=== PATIENT | male | born 1945 | race Caucasian/White ===

== ENCOUNTER 2020-05-25 09:02 | Day surgery (SDC) | payer MEDICARE, OTHER ==
[2020-05-23 13:00] LABS: BASOPHILS % (AUTO) 0.2 % (0-1); EOSINOPHILS # (AUTO) 0.1 X10'3 (0-0.9); EOSINOPHILS % (AUTO) 1.2 % (0-6); HEMATOCRIT 44.6 % (42.0-52.0); HEMOGLOBIN 14.7 g/dl (14.0-17.9); LYMPHOCYTES # (AUTO) 2.7 X10'3 (1.1-4.8); LYMPHOCYTES % (AUTO) 43.6 % (21-51); MEAN CORPUSCULAR HEMOGLOBIN 31.5 PG (27.0-31.0); MEAN CORPUSCULAR HGB CONC 32.9 g/dL (33.0-36.5); MEAN CORPUSCULAR VOLUME 95.6 FL (78-98); MEAN PLATELET VOLUME 7.3 FL (7.4-10.4); MONOCYTES # (AUTO) 0.5 X10'3 (0-0.9); MONOCYTES % (AUTO) 8.7 % (2-12); NEUTROPHILS # (AUTO) 2.8 X10'3 (1.8-7.7); NEUTROPHILS % (AUTO) 46.3 % (42-75); PLATELET COUNT 172 X10'3 (140-440); RED BLOOD COUNT 4.66 X10'6 (4.70-6.10); RED CELL DISTRIBUTION WIDTH 13.7 % (11.5-14.5); WHITE BLOOD COUNT 6.1 X10'3 (4.5-11.0)
[2020-05-23 13:14] LABS: PARTIAL THROMBOPLASTIN TIME 26 SECONDS (22-32)
[2020-05-23 13:18] LABS: ALBUMIN 3.1 G/DL (3.4-5.0); ANION GAP 7 (8-16); BLOOD UREA NITROGEN 13 MG/DL (7-18); BUN/CREATININE RATIO 14.8 (5.4-32.0); CALCIUM 9.2 MG/DL (8.5-10.1); CHLORIDE 107 MMOL/L (99-107); CREATININE 0.88 MG/DL (0.60-1.10); GLUCOSE 80 MG/DL (70-104); POTASSIUM 4.6 MMOL/L (3.5-5.1); SODIUM 143 MMOL/L (135-145); TOTAL CARBON DIOXIDE 29.4 MMOL/L (24-32); eGFR 84 ML/MIN
[~2020-05-25] VITALS: Ht 172.7 cm; Wt 103.7 kg
[2020-05-25] VITALS (12 sets, daily range): BP systolic 128–158; BP diastolic 68–88
[2020-05-25] MEDS ORDERED: LIDOcaine/PRILOcaine 5gm cream TP ONE (09:35)
[2020-05-25] MEDS ORDERED: LORazepam 0.5 MG tablet PO PRN (09:35)
[2020-05-25] MEDS ORDERED: diphenhydrAMINE 25mg capsule PO PRN (09:35)
[2020-05-25] MEDS ORDERED: normal saline 1,000 ML IV SCH (09:35)
[2020-05-25] MEDS ORDERED: DIP0.05CR TOP (09:51)
[2020-05-25] MEDS ORDERED: POLY17PO10 PO (09:51)
[2020-05-25] MEDS ORDERED: LACT1CAP65 PO (09:54)
[2020-05-25] MEDS ORDERED: CETI-194 PO (09:54)
[2020-05-25] MEDS ORDERED: VITA100C24 PEG (09:54)
[2020-05-25] MEDS ORDERED: DETOX PO (09:54)
[2020-05-25] MEDS ORDERED: PANT40TA54 PO (09:54)
[2020-05-25] MEDS ORDERED: LUTE1CAP4 PO (09:58)
[2020-05-25] MEDS ORDERED: UBID100C16 PO (09:58)
[2020-05-25] MEDS ORDERED: VITAMIN D3 PO (09:58)
[2020-05-25] MEDS ORDERED: VITAMIN B12 PO (09:58)
[2020-05-25] MEDS ORDERED: fentaNYL/PF 50MCG/1 ML 2ML syringe ONE (11:44)
[2020-05-25] MEDS ORDERED: ceFAZolin 1000mg inj ONE (11:44)
[2020-05-25] MEDS ORDERED: midazolam 1 mg/ML 2ml injection ONE ×2 (11:44→13:49)
[2020-05-25] MEDS ORDERED: LIDOcaine 1% W/epiNEPHrine 1:100,000 20ml vial ONE (11:45)
[2020-05-25] MEDS ORDERED: ceFAZolin 2gm in dextrose, iso 50 ML IV ONE (12:31)
[2020-05-25] MEDS ORDERED: verapamil 2.5 mg/ml inj IV ONE (13:39)
[2020-05-25] MEDS ORDERED: nitroGLYCERIN-Tridil 50MG/D5W 250 ML IV ONE (13:39)
[2020-05-25] MEDS ORDERED: iohexol 350MG/ML 100ml bottle IV ONE (13:39)
[2020-05-25] MEDS ORDERED: iohexol 350 MG/ML 50ML vial IV ONE ×2 (13:39→14:21)
[2020-05-25] MEDS ORDERED: LIDOcaine 1% (10mg/ml)w/preservative injection 20ml MDV ONE (13:39)
[2020-05-25] MEDS ORDERED: heparin 1,000unit/ml 10ml vial 10 ML ONE (13:39)
[2020-05-25] MEDS ORDERED: HYDROcodone/acetaminophen 5mg/325mg tablet PO PRN (15:00)
[2020-05-25] MEDS ORDERED: HYDROcodone/acetaminophen 10/325mg tab PO PRN (15:00)
[2020-05-25] MEDS ORDERED: normal saline 1000ml 1,000 ML IV SCH (15:00)
[2020-05-25] MEDS ORDERED: vancomycin/NS 1 GM ADD-VANTAGE 250 ML X 1 DOSE IV ONE (16:00)
== END 2020-05-25 20:18 | disposition home or self-care (01) ==
LOC: SSTAY O 09:02
PROVIDERS: ATTEND Internal Medicine Cardiovascular Disease
DX: I49.5 Sick sinus syndrome (principal); R06.02 Shortness of breath; R53.83 Other fatigue; I25.10 Atherosclerotic heart disease of native coronary artery without angina pectoris; K21.9 Gastro-esophageal reflux disease without esophagitis; M19.90 Unspecified osteoarthritis, unspecified site; E78.5 Hyperlipidemia, unspecified; I45.10 Unspecified right bundle-branch block; G47.30 Sleep apnea, unspecified; I47.1 Supraventricular tachycardia; Z96.652 Presence of left artificial knee joint; Z98.890 Other specified postprocedural states; Z72.89 Other problems related to lifestyle; Z88.5 Allergy status to narcotic agent; Z79.899 Other long term (current) drug therapy
CPT/HCPCS: 33208; 36415; 71046; 76937; 80048; 85025; 85610; 85730; 93005; 93458; 93567; 99152; 99153; C1769; C1785; C1894; C1898; J0690; J1644; J2001; J2250; J3010; J7030; Q0163; Q9967; A4565; A4620; A6449; J3490